=== PATIENT | female | born 1950 | race Caucasian/White ===

== ENCOUNTER 2016-08-15 20:09 | Inpatient (IN) | payer OTHER ==
[~2016-08-15] VITALS: Ht 167.6 cm; Wt 80.2 kg
[~2016-08-15 20:09] MED LIST: COLACE100 MG PO; ESCITALOPRAM OX10 MG PO; LEVOTHYROXINE100 MCG PO; LISINOPRIL/HYDR1 TA1 PO; ONDANSETRON ODT4 MG PO; PERCOCET1 TA1 PO; RANITIDINE HCL150 MG PO
--- NOTE | 2016-08-15 22:57 | DIAGNOSTIC IMAGING REPORT ---
PROCEDURE: CT ABD/PELVIS WITH CONTRAST INDICATION: Left flank pain. Follow-up left renal laceration. TECHNIQUE: 75 ml of Isovue 300 (one half-dose) were injected intravenously and axial images were obtained of the entire abdomen and pelvis with sagittal and coronal reformations. COMPARISON: Compared to CT thorax abdomen and pelvis (07/26/2016) and CT abdomen and pelvis studies (07/14/2016, 07/07/2009). FINDINGS: ABDOMEN: There is moderate left hydronephrosis with moderate blood clot in the left renal pelvis. This is associated with a 2.5 cm low density lesion/laceration in the lower pole left kidney. Right kidney and ureter are normal. Gallbladder, liver, spleen, pancreas, and aorta are normal. Moderate hiatal hernia. Bowel pattern is normal. Mild left basilar subsegmental atelectasis with healing fractures of the left lateral eighth ninth and tenth ribs. There are moderate degenerative changes of the lumbar spine. PELVIS: There is a large blood clot in the urinary bladder (7.0 cm). Uterus and adnexal structures are normal. No evidence of free fluid. IMPRESSION: 1. There is moderate left hydronephrosis secondary to a blood clot in the left renal pelvis. 2. There is a 2.5 cm lesion/laceration in the lower pole left kidney. 2. Associated large 7.0 cm blood clot in the urinary bladder. 3. Mild left basilar subsegmental atelectasis with 11 fractures of the left lateral eighth ninth and tenth ribs. 4. Moderate hiatal hernia. 5. Findings discussed with RICHARD Mendenhall. All CT scans at this facility use dose modulation, iterative reconstruction, and/or weight-based dosing when appropriate to reduce radiation dose to as low as reasonably achievable.
--- NOTE | 2016-08-15 23:05 | ED ORDER SUMMARY ---
..... Patient: DRAKE RON OrderSheet [facility] VisitID: [id number] [address] [place] [address] 65y, F Registration Date/Time: 08/15/2016 ORDER SHEET Weight: 73.4 kg (stated) Allergies: No Known Drug Allergy GENERAL ORDERS: UA-Culture if indicated Urgent (20:57 08/15/2016 ABlanchette PA-C) (Ack 21:03 [facility] ER Tech1) (Cancelled: Other; shayan blood in urine, see chart note23:12 JDeElena R.N.) CMP Urgent (21:06 08/15/2016 ABlanchette PA-C) (Ack 21:07 [facility] ER Tech1) (21:21 JDeElena R.N.) CBC w Diff Urgent (21:06 08/15/2016 ABlanchette PA-C) (Ack 21:07 [facility] Tech1) (21:21 JDeElena R.N.) CT Abd/Pel w Cont (No) (pending.) (history of renal laceration, now with worsening hematuria and worsening pain initial injury was from fall onto her side 07/14. see prior CT) Urgent (21:47 08/15/2016 ABlanchette PA-C) (Ack 21:50 [facility] ER Tech1) (22:34 JDeElena R.N.) MEDICATION ORDERS: IV FLUIDS: IV NS with Normal Saline 1 Liter: initial bolus none -, then 1000 mL/hr for X1 (NOW); Travis (21:04 08/15/2016 ABlanchette PA-C) (Ack 21:09 JDeElena R.N.) (21:22 JDeElena R.N.) Dilaudid IV 0.5 mg (HIGH ALERT MEDICATION, NOW) (21:05 08/15/2016 ABlanchette PA-C) (Ack 21:09 JDeElena R.N.) (21:22 JDeElena R.N.) Zofran IV 4 mg (NOW) (21:05 08/15/2016 ABlanchette PA-C) (Ack 21:09 JDeElena R.N.) (21:22 JDeElena R.N.) Dilaudid IV 0.5 mg (HIGH ALERT MEDICATION, NOW) (22:02 08/15/2016 [facility]-) (22:04 Rolly R.N.) Zofran IV 4 mg (NOW) (23:10 08/15/2016 Eusebia R.N. verbal order read back to [facility]) (23:11 BryceDeElena R.N.) Dilaudid IV 0.5 mg (HIGH ALERT MEDICATION, NOW) (23:10 08/15/2016 Eusebia R.N. verbal order read back to [facility]) (23:11 JasonElena R.N.) IV NS with Normal Saline 1 Liter: initial bolus none -, then 250 mL/hr for X1 (NOW) (23:10 08/15/2016 Eusebia R.N. verbal order read back to [facility]) (23:11 Eusebia R.N.) Dilaudid IV 0.5 mg (HIGH ALERT MEDICATION, NOW) (00:17 08/16/2016 [facility]) (0:20 Lise R.N.) ORDER SHEET NOTES: [Electronically signed by Galileo Lawler R.N. (00:08/16/2016)] [Electronically signed by Maeve Neri PA-C (01:20 08/16/2016)] [Electronically locked/signed by Galileo Lawler R.N. (00:08/16/2016)]
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
--- NOTE | 2016-08-15 23:05 | ED ORDER SUMMARY ---
..... Patient: DRAKE RON OrderSheet [facility] VisitID: [id number] [address] [place] [address] 65y, F Registration Date/Time: 08/15/2016 ORDER SHEET Weight: 73.4 kg (stated) Allergies: No Known Drug Allergy GENERAL ORDERS: UA-Culture if indicated Urgent (20:57 08/15/2016 ABlanchette PA-C) (Ack 21:03 [facility] ER Tech1) (Cancelled: Other; shayan blood in urine, see chart note23:12 JDeElena R.N.) CMP Urgent (21:06 08/15/2016 ABlanchette PA-C) (Ack 21:07 [facility] ER Tech1) (21:21 JDeElena R.N.) CBC w Diff Urgent (21:06 08/15/2016 ABlanchette PA-C) (Ack 21:07 [facility] ER Tech1) (21:21 JDeElena R.N.) CT Abd/Pel w Cont (No) (pending.) (history of renal laceration, now with worsening hematuria and worsening pain initial injury was from fall onto her side 07/14. see prior CT) Urgent (21:47 08/15/2016 ABlanchette PA-C) (Ack 21:50 [facility] ER Tech1) (22:34 JDeElena R.N.) MEDICATION ORDERS: IV FLUIDS: IV NS with Normal Saline 1 Liter: initial bolus none -, then 1000 mL/hr for X1 (NOW); Travis (21:04 08/15/2016 ABlanchette PA-C) (Ack 21:09 JDeElena R.N.) (21:22 JDeElena R.N.) Dilaudid IV 0.5 mg (HIGH ALERT MEDICATION, NOW) (21:05 08/15/2016 ABlanchette PA-C) (Ack 21:09 JDeElena R.N.) (21:22 JDeElena R.N.) Zofran IV 4 mg (NOW) (21:05 08/15/2016 ABlanchette PA-C) (Ack 21:09 JDeElena R.N.) (21:22 JDeElena R.N.) Dilaudid IV 0.5 mg (HIGH ALERT MEDICATION, NOW) (22:02 08/15/2016 [facility]-) (22:04 Rolly R.N.) Zofran IV 4 mg (NOW) (23:10 08/15/2016 Eusebia R.N. verbal order read back to [facility]) (23:11 BryceDeElena R.N.) Dilaudid IV 0.5 mg (HIGH ALERT MEDICATION, NOW) (23:10 08/15/2016 Eusebia R.N. verbal order read back to [facility]) (23:11 JasonElena R.N.) IV NS with Normal Saline 1 Liter: initial bolus none -, then 250 mL/hr for X1 (NOW) (23:10 08/15/2016 Eusebia R.N. verbal order read back to [facility]) (23:11 Eusebia R.N.) Dilaudid IV 0.5 mg (HIGH ALERT MEDICATION, NOW) (00:17 08/16/2016 [facility]) (0:20 Lise R.N.) ORDER SHEET NOTES: [Electronically signed by Galileo Lawler R.N. (00:08/16/2016)] [Electronically signed by Maeve Neri PA-C (01:20 08/16/2016)] [Electronically locked/signed by Galileo Lawler R.N. (00:08/16/2016)]
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
[2016-08-16] VITALS (9 sets, daily range): BP systolic 95–155; BP diastolic 55–99
--- NOTE | 2016-08-16 01:21 | ED MED RECONCILIATION SUMMARY ---
Patient: DRAKE RON Medication Reconciliation Report [facility] VisitID: [id number] [address] [place] [address] 65y, F Registration Date/Time: 08/15/2016 Weight: 73.4 kg Height/Length: 66 in. BMI: 26.1 ALLERGIES: No Known Drug Allergy The patient's Home Medications are listed below: THE FOLLOWING MEDICATIONS NEED TO BE RECONCILED: Citalopram Hydrobromide Oral Hydrochlorothiazide Oral Levothyroxine Sodium Oral Ranitidine HCl Oral The source(s) of the original Home Medication information: Not obtained. The following Medications were given to the patient in the Emergency Department: IV NS IV Fluids bolus 1000 mL over 1 hour(s), then 1000 mL/hr, administered: 08/15/2016 9:22:00 PM Dilaudid [IVP] IVP 0.5 mg, administered: 08/15/2016 9:22:00 PM Zofran [IVP] IVP 4 mg, administered: 08/15/2016 9:22:00 PM Dilaudid [IVP] IVP 0.5 mg, administered: 08/15/2016 10:04:00 PM Zofran [IVP] IVP 4 mg, administered: 08/15/2016 11:11:00 PM Dilaudid [IVP] IVP 0.5 mg, administered: 08/15/2016 11:11:00 PM IV NS IV Fluids bolus 0, then 250 mL/hr, administered: 08/15/2016 11:11:00 PM Dilaudid [IVP] IVP 0.5 mg, administered: 08/16/2016 12:18:00 AM The following Medications were prescribed to the patient: None.
--- NOTE | 2016-08-16 01:21 | ED MAR SUMMARY ---
..... Medication Administration Record [facility] [address] [place] [address] Patient: DRAKE RON Visit ID: [id number] 65y, F Weight: 73.4 kg Height/Length: 66 in BMI: 26.1 ALLERGIES: No Known Drug Allergy Start 21:08/15/2016 Galileo Lawler R.N., Stop 23:08/15/2016 Galileo Lawler R.N. Medication Administered: IV NS (SALINE), Dose: IV Fluids, Rate: 1000 mL/hr, Bolus: 1000 mL over 1 hour(s), Dispensed: 1000 mL bag, Site: #1 left AC. Medication Ordered: IV NS with Normal Saline 1 Liter: initial bolus none -, then 1000 mL/hr for X1 (NOW); Travis. Given 08/15/2016 Galileo Lawler R.N. Medication Administered: DILAUDID [IVP] (HYDROMORPHONE HCL PF), Dose: 0.5 mg IVP over 2 minute(s), Site: #1 left AC. Medication Ordered: Dilaudid IV 0.5 mg (HIGH ALERT MEDICATION, NOW). Given 08/15/2016 Galileo Lawler R.N. Medication Administered: ZOFRAN [IVP] (ONDANSETRON HCL), Dose: 4 mg IVP over 2 minute(s), Site: #1 left AC. Medication Ordered: Zofran IV 4 mg (NOW). Given 08/15/2016 Guadalupe Spencer R.N. Medication Administered: DILAUDID [IVP] (HYDROMORPHONE HCL PF), Dose: 0.5 mg IVP over 1 minute(s), Site: #1 left AC. Medication Ordered: Dilaudid IV 0.5 mg (HIGH ALERT MEDICATION, NOW). Given 08/15/2016 Galileo Lawler R.N. Medication Administered: ZOFRAN [IVP] (ONDANSETRON HCL), Dose: 4 mg IVP over 2 minute(s), Site: #1 left AC. Medication Ordered: Zofran IV 4 mg (NOW). Given :11 08/15/2016 Galileo Lawler, RJasonNJason Medication Administered: DILAUDID [IVP] (HYDROMORPHONE HCL PF), Dose: 0.5 mg IVP over 2 minute(s), Site: #1 left AC. Medication Ordered: Dilaudid IV 0.5 mg (HIGH ALERT MEDICATION, NOW). Start 23:11 08/15/2016 Galileo Lawler R.N., Continued Upon Admission 00:02 08/16/2016 Galileo Lawler R.N. Medication Administered: IV NS (SALINE), Dose: IV Fluids over 4 hour(s), Rate: 250 mL/hr, Dispensed: 1000 mL bag, Site: #1 left AC. Medication Ordered: IV NS with Normal Saline 1 Liter: initial bolus none -, then 250 mL/hr for X1 (NOW). Given 00:18 08/16/2016 Joey Wilson, R.N. Medication Administered: DILAUDID [IVP] (HYDROMORPHONE HCL PF), Dose: 0.5 mg IVP over 1 minute(s), Site: #1 left AC. Medication Ordered: Dilaudid IV 0.5 mg (HIGH ALERT MEDICATION, NOW).
--- NOTE | 2016-08-16 01:21 | ED MAR SUMMARY ---
..... Medication Administration Record [facility] [address] [place] [address] Patient: DRAKE RON Visit ID: [id number] 65y, F Weight: 73.4 kg Height/Length: 66 in BMI: 26.1 ALLERGIES: No Known Drug Allergy Start 21:08/15/2016 Galileo Lawler R.N., Stop 23:08/15/2016 Galileo Lawler R.N. Medication Administered: IV NS (SALINE), Dose: IV Fluids, Rate: 1000 mL/hr, Bolus: 1000 mL over 1 hour(s), Dispensed: 1000 mL bag, Site: #1 left AC. Medication Ordered: IV NS with Normal Saline 1 Liter: initial bolus none -, then 1000 mL/hr for X1 (NOW); Travis. Given 08/15/2016 Galileo Lawler R.N. Medication Administered: DILAUDID [IVP] (HYDROMORPHONE HCL PF), Dose: 0.5 mg IVP over 2 minute(s), Site: #1 left AC. Medication Ordered: Dilaudid IV 0.5 mg (HIGH ALERT MEDICATION, NOW). Given 08/15/2016 Galileo Lawler R.N. Medication Administered: ZOFRAN [IVP] (ONDANSETRON HCL), Dose: 4 mg IVP over 2 minute(s), Site: #1 left AC. Medication Ordered: Zofran IV 4 mg (NOW). Given 08/15/2016 Guadalupe Spencer R.N. Medication Administered: DILAUDID [IVP] (HYDROMORPHONE HCL PF), Dose: 0.5 mg IVP over 1 minute(s), Site: #1 left AC. Medication Ordered: Dilaudid IV 0.5 mg (HIGH ALERT MEDICATION, NOW). Given 08/15/2016 Galileo Lawler R.N. Medication Administered: ZOFRAN [IVP] (ONDANSETRON HCL), Dose: 4 mg IVP over 2 minute(s), Site: #1 left AC. Medication Ordered: Zofran IV 4 mg (NOW). Given :11 08/15/2016 Galileo Lawler, RJasonNJason Medication Administered: DILAUDID [IVP] (HYDROMORPHONE HCL PF), Dose: 0.5 mg IVP over 2 minute(s), Site: #1 left AC. Medication Ordered: Dilaudid IV 0.5 mg (HIGH ALERT MEDICATION, NOW). Start 23:11 08/15/2016 Galileo Lawler R.N., Continued Upon Admission 00:02 08/16/2016 Galileo Lawler R.N. Medication Administered: IV NS (SALINE), Dose: IV Fluids over 4 hour(s), Rate: 250 mL/hr, Dispensed: 1000 mL bag, Site: #1 left AC. Medication Ordered: IV NS with Normal Saline 1 Liter: initial bolus none -, then 250 mL/hr for X1 (NOW). Given 00:18 08/16/2016 Joey Wilson, R.N. Medication Administered: DILAUDID [IVP] (HYDROMORPHONE HCL PF), Dose: 0.5 mg IVP over 1 minute(s), Site: #1 left AC. Medication Ordered: Dilaudid IV 0.5 mg (HIGH ALERT MEDICATION, NOW).
--- NOTE | 2016-08-16 01:21 | ED MED RECONCILIATION SUMMARY ---
Patient: DRAKE RON Medication Reconciliation Report [facility] VisitID: [id number] [address] [place] [address] 65y, F Registration Date/Time: 08/15/2016 Weight: 73.4 kg Height/Length: 66 in. BMI: 26.1 ALLERGIES: No Known Drug Allergy The patient's Home Medications are listed below: THE FOLLOWING MEDICATIONS NEED TO BE RECONCILED: Citalopram Hydrobromide Oral Hydrochlorothiazide Oral Levothyroxine Sodium Oral Ranitidine HCl Oral The source(s) of the original Home Medication information: Not obtained. The following Medications were given to the patient in the Emergency Department: IV NS IV Fluids bolus 1000 mL over 1 hour(s), then 1000 mL/hr, administered: 08/15/2016 9:22:00 PM Dilaudid [IVP] IVP 0.5 mg, administered: 08/15/2016 9:22:00 PM Zofran [IVP] IVP 4 mg, administered: 08/15/2016 9:22:00 PM Dilaudid [IVP] IVP 0.5 mg, administered: 08/15/2016 10:04:00 PM Zofran [IVP] IVP 4 mg, administered: 08/15/2016 11:11:00 PM Dilaudid [IVP] IVP 0.5 mg, administered: 08/15/2016 11:11:00 PM IV NS IV Fluids bolus 0, then 250 mL/hr, administered: 08/15/2016 11:11:00 PM Dilaudid [IVP] IVP 0.5 mg, administered: 08/16/2016 12:18:00 AM The following Medications were prescribed to the patient: None.
--- NOTE | 2016-08-16 01:21 | ED DISCHARGE INSTRUCTIONS ---
Patient: DRAKE RON General Instructions [facility] VisitID: [id number] [address] [place] [address] 65y, F Registration Date/Time: 08/15/2016 renal laceration with renal pelvis hematoma now with obstruction and clot within the bladder. Admitted. INSTRUCTIONS Understanding of the discharge instructions verbalized by patient. (Electronically signed by Maeve Neri PA-C 08/16/2016 1:20)
--- NOTE | 2016-08-16 01:21 | ED DISCHARGE INSTRUCTIONS ---
Patient: DRAKE RON General Instructions [facility] VisitID: [id number] [address] [place] [address] 65y, F Registration Date/Time: 08/15/2016 renal laceration with renal pelvis hematoma now with obstruction and clot within the bladder. Admitted. INSTRUCTIONS Understanding of the discharge instructions verbalized by patient. (Electronically signed by Maeve Neri PA-C 08/16/2016 1:20)
--- NOTE | 2016-08-16 09:17 | CONSULTATION REPORT ---
DATE OF CONSULTATION: 08/16/2016 CHIEF COMPLAINT: 1. Left flank pain 2. Hematuria HISTORY OF PRESENT ILLNESS: The patient is a 65-year-old woman who presented to the emergency department with acute onset of pain in the left flank and hematuria. Today, she turned her body suddenly and developed a sudden pain. This patient was admitted to the hospital on 07/14/2016, about 1 month ago, after falling while walking her dog. She struck her left side and sustained 3 lower rib fractures and a renal laceration. A CT showed a 2.5 cm laceration with mild perinephric hematoma and filling defect in the left renal pelvis. She had normal dye excretion within the left ureter. At the time, her hematocrit was 41. In this occasion, she was admitted to the hospital with recurrence of similar symptoms following this twisting movement. She has since been found to have a clot in her bladder. Initially, she was urinating freely last night, but this morning notes she is having trouble passing urine, and she has a 350-400 mL residual in her bladder. MEDICAL/SURGICAL HISTORY: Medical history of cyclic vomiting syndrome, hypertension, hypothyroidism, and anxiety. Past surgeries includes tonsillectomy and adenoidectomy, bilateral foot surgery and EGD. MEDICATIONS: 1. Synthroid 0.1 mg daily. 2. Ondansetron 4 mg as needed. 3. Zantac 150 b.i.d. 4. Escitalopram 10 mg daily. 5. Lisinopril/hydrochlorothiazide 10/12.5 every day. The patient denies use of NSAIDs or aspirin, but did take some Tylenol yesterday. ALLERGIES: 1. NONE TO MEDICATIONS. SOCIAL HISTORY: The patient is . She has 2 sons. She does not smoke cigarettes, rarely takes alcohol. FAMILY HISTORY: Mother at 79. Father at 81. She has 2 brothers; 1 in an MVA, the other from lung cancer, one sister of cancer, unknown primary. REVIEW OF SYSTEMS: A multipoint review of systems was obtained on admission on 07/14/2016. This was reviewed with the patient. The patient reports no new additional problems. She is G2, P3, AB1, with menarche at age 12. LNMP at age 56. She does her preventive medicine with [facility]; had a mammogram and a Pap smear within a year or so. Additional more than 12-point review of systems was obtained by questionnaire on 08/15/2016 and is pertinent only for urinary symptoms and nausea. PHYSICAL EXAMINATION: GENERAL: The patient is alert and cooperative. HEENT: Her ears and nose are without gross external lesions. Eyes are equal. She is anicteric. NECK: Without palpable masses or thyromegaly. CHEST: Clear, without wheeze or rales. HEART: Regular, without murmur or gallop. ABDOMEN: Reveals tenderness in the flank and with palpation. She has no evidence of flank ecchymosis or periumbilical ecchymosis. EXTREMITIES: Symmetric. She appears to move without restriction. LAB/IMAGING: Her CBC in the emergency room demonstrated hemoglobin and hematocrit of 12.4 and 37.9, with a repeat this morning of 11.6 and 35.5, white blood count was 15.7 and has gone down to 13.4, her platelet count is 330,000. Her chemistry demonstrated normal electrolytes, mildly elevated BUN at 26, normal creatinine of 1.2, bilirubin is normal. Liver enzymes all normal. Protein and albumin are all normal. CT scan was repeated and compared to previous scans. This current CT demonstrates moderate left hydronephrosis secondary to a blood clot in the left renal pelvis, a 2.5 cm lesion in the lower pole of the left kidney, and a 7 cm blood clot in the urinary bladder. There is left basilar atelectasis with fractures of the left eighth, ninth, tenth, and eleventh ribs. There is a moderate hiatal hernia noted. IMPRESSION: 1. Recurrent hematuria from left renal laceration PLAN: I recommended placement of an irrigating catheter to help to clear out her bladder and get urinary flow going. She will be placed at bed rest and observed for evidence of ongoing bleeding. I will try to obtain telephonic consultation with a urologist to determine if transfer or any further intervention is needed at this time.
--- NOTE | 2016-08-16 11:24 | Progress Note ---
Assessment and Plan Problem List 1. RENAL LACERATION Plan I presented Ms. Hdz to Dr. Ortega who is the urologist aws consultant at [facility]. He agreed with the current plan of conservative management with catheter drainage for clot retention and observation for the renal injury. He recommended urologic follow up to rule out a renal tumor after she is discharged. He also concurred with consideration of angiography if bleeding is ongoing, but reported that a recurrent bleed at this point is not that unusual. Dr. Ortega's office number is [phone].
--- NOTE | 2016-08-16 11:24 | Progress Note ---
Assessment and Plan Problem List 1. RENAL LACERATION Plan I presented Ms. Hdz to Dr. Ortega who is the urologist driver education road instructor at [facility]. He agreed with the current plan of conservative management with catheter drainage for clot retention and observation for the renal injury. He recommended urologic follow up to rule out a renal tumor after she is discharged. He also concurred with consideration of angiography if bleeding is ongoing, but reported that a recurrent bleed at this point is not that unusual. Dr. Ortega's office number is [phone].
[2016-08-17 00:53] VITALS: BP 129/82
[2016-08-17 03:04] VITALS: BP 112/74
[2016-08-17 06:17] VITALS: BP 115/76
[2016-08-17 10:53] VITALS: BP 124/80
--- NOTE | 2016-08-17 12:25 | DIAGNOSTIC IMAGING REPORT ---
PROCEDURE: US PELVIC LIMITED INDICATION: INGUINAL PAIN, R HIP PAIN, RULE OUT HERNIA TECHNIQUE: Multiple longitudinal and transverse sonograms were obtained through the pelvis and bladder COMPARISON: None FINDINGS: Difficult scan. Son catheter was seen in the bladder. No large clots were seen. IMPRESSION: 1. No large clots in the bladder.
[2016-08-17 15:50] VITALS: BP 143/96
[2016-08-17 19:05] VITALS: BP 143/88
[2016-08-18] VITALS (7 sets, daily range): BP systolic 122–159; BP diastolic 75–96
[2016-08-19 02:45] VITALS: BP 129/74
[2016-08-19 06:35] VITALS: BP 157/80
[2016-08-19] MEDS ORDERED: PERCOCET1 TA1 PO (07:56)
--- NOTE | 2016-08-19 07:57 | Provider's Discharge Care Plan ---
Problem, Goal, Plan Problem List 1. Intraabdominal hemorrhage 2. RENAL LACERATION
--- NOTE | 2016-08-19 07:57 | Provider's Discharge Care Plan ---
Problem, Goal, Plan Problem List 1. Intraabdominal hemorrhage 2. RENAL LACERATION
--- NOTE | 2016-08-30 22:11 | DISCHARGE SUMMARY ---
ADMIT DATE: 08/16/2016 DISCHARGE DATE: 08/19/2016 DISCHARGE DIAGNOSES: 1. Renal laceration. 2. Urinary clot retention. BRIEF HISTORY: The patient is a 65-year-old woman who presented to the emergency department with acute onset of left flank pain and hematuria. This patient sustained a fall on 07/14/2016 while she was walking her dog, where she developed a left renal laceration and 3 lower rib fractures. This all seemed to heal up well without any problem, but on this occasion, the patient did have twisting movement and her symptoms promptly recurred more than a month out from the original injury. She was also found to have a clot in her bladder and initially having was urinating freely, but then developed evidence of clot retention. HOSPITAL COURSE: She was admitted to the hospital where a large bore irrigating Son catheter was placed and the blood clot irrigated out of her bladder. She was kept at bed rest and observed for signs of ongoing bleeding, which did not occur. Her diet was advanced and her bleeding stopped. I consulted with Dr. Ortega of urology on the telephone and he concurred with the method of management, but recommended that she be followed up with urology due to the possibility of intrinsic kidney disease being associated with this recurrent episode of bleeding. DISCHARGE INSTRUCTIONS/MEDICATIONS: Follow up with urology after discharge.
== END 2016-08-19 09:45 | disposition home or self-care (01) | DRG 700 ==
LOC: ED SRH 20:09 → ACUTE3 SRH 23:08 → TRANS SRH 23:08 → ACUTE3 SRH 08-16 00:20 → ACUTE2 SRH 08-18 17:14
PROVIDERS: ADMIT Surgery
DX: S37.052A Moderate laceration of left kidney, initial encounter (principal); W01.198A Fall on same level from slipping, tripping and stumbling with subsequent striking against other object, initial encounter; R31.0 Gross hematuria; N13.9 Obstructive and reflux uropathy, unspecified
CPT/HCPCS: 29230; 29259; 29264; 80172; 90047; 90074; 90100; 94060; 95059

== ENCOUNTER 2016-09-02 15:21 | Observation (INO) | payer OTHER ==
--- NOTE | 2016-09-02 18:27 | ED ORDER SUMMARY ---
..... Patient: DRAKE RON OrderSheet [facility] VisitID: [id number] [place] [address] 65y, F Registration Date/Time: 09/02/2016 ORDER SHEET Weight: 71.6 kg (stated) Allergies: Vicodin GENERAL ORDERS: CBC w Diff Urgent (16:09/02/2016 Kenny MERCADO) (Ack 16:02 TBergley) (16:32 TBergley) UA-Culture if indicated Urgent (16:09/02/2016 Kenny MERCADO) (Ack 16:02 TBergley) (16:30 TBergley) BMP Urgent (16:09/02/2016 Kenny MERCADO) (Ack 16:05 TBergley) (16:32 TBergley) Type & Cross (blood loss anemia) (transfusion) Urgent (18:09/02/2016 Kenny MERCADO) (Ack 18:43 TBergley) (19:51 TBergley) - (Start transfusion 3 units PRBC as soon as blood is available.) (18:09/02/2016 Kenny MERCADO) (Ack 18:43 TBergley) (19:51 TBergley) MEDICATION ORDERS: IV FLUIDS: IV Saline Lock (16:09/02/2016 Kenny MERCADO) (16:36 Fabiola R.N.) ORDER SHEET NOTES: [Electronically signed by Toribio Prater R.N. (21:09/02/2016)] [Electronically signed by Herbert Carmen MD (08:23 09/04/2016)] [Electronically locked/signed by Toribio Prater R.N. (:09/02/2016)]
--- NOTE | 2016-09-02 18:27 | ED CLINICAL REPORT ---
Clinical Report - Physicians/Mid Levels [facility] [address] [place] [address] 09/02/2016 15:20 Patient: DRAKE RON Time Seen: 08:14 Sep 04 2016. Arrived- By private vehicle. Historian- patient. CPT: ER phys charges level 5 (#241124). HISTORY OF PRESENT ILLNESS Chief Complaint: Anemia, need transfusion. ( Patient was seen in urology clinic today and sent to the ER for transfusion. Patient has underlying ruptured kidney on the left due to trauma and has slow bleeding through the urinary tract. She has been urinating blood for 6 weeks now. She had a hematocrit at the office of 24. 7 days ago she had a hematocrit that was 34.). This started several days and is still present. At its maximum, severity described as moderate. When seen in the E.D., severity described as moderate. Modifying factors. Not worsened by anything. Not relieved by anything. The patient has had fatigue and weakness. Similar symptoms previously: None. Recent medical care: The patient was seen recently at this facility and another facility in the emergency department and office. REVIEW OF SYSTEMS No fever, sore throat or throat, sinus drainage or nasal congestion. No cough, difficulty breathing, abdominal pain, nausea or vomiting. No diarrhea, black stools or stools or bloody stools or stools. No chills, difficulty with urination or urination or abnormal bleeding. No skin rash or rash, back pain, calf pain or headache. No blackouts, double vision, epistaxis, urinary frequency or easy bruising. The patient has had moderate, sharp, stabbing left-sided chest pain (due to rib fractures.). No difficulty with ambulation. The patient has had hematuria. All systems otherwise negative, except as recorded above. PAST HISTORY See nurses notes. ( Patient states broke some ribs and had lacerated left kidney 12/ post fall Rib Fracture. Renal Injury. Thyroid Disease. Hypertension. Gastroesophageal Reflux Disease. Cyclical vomiting syndrome. ADDITIONAL SURGERIES: Adenoidectomy. Bilateral feet. Tonsillectomy. Wrist bilat. Medications: Zofran Oral. Percocet Oral. Citalopram Hydrobromide Oral. Hydrochlorothiazide Oral. Levothyroxine Sodium Oral. Ranitidine HCl Oral. Allergies: Vicodin. SOCIAL HISTORY Never smoker. No alcohol use or drug use. ADDITIONAL NOTES The nursing notes have been reviewed. PHYSICAL EXAM Vital Signs: 09/02/2016 15:28 BP: 142/64. HR: 91. RR: 18. O2 saturation: 100%. Temp: 98.5 F. Appearance: Alert. Eyes: Pale conjunctivae. ENT: Nose normal. Pharynx normal. Neck: Normal inspection. CVS: Normal heart rate and rhythm. Heart sounds normal. Pulses normal. Respiratory: No respiratory distress. Breath sounds normal. Chest nontender. Abdomen: Soft and nontender. Back: Normal inspection. Skin: Skin warm. No rash. Pallor. Extremities: Extremities exhibit normal ROM. Neuro: Oriented X 3. No motor deficit. No sensory deficit. LABS, X-RAYS, AND EKG Laboratory Tests: CBC wo Diff: (MINDY: 09/03/2016 11:50) ( [facility] 11[facility]58[facility] Final results Test Result Flag Units (Reference) WHITE BLOOD COUNT NO REFLEX 9.4 K/uL (4.5-11.5) RED BLOOD COUNT 3.84 L M/uL (4.00-5.20) HEMOGLOBIN 11.4 L gm/dL (12.0-16.0) HEMATOCRIT 33.7 L % (36.0-46.0) MEAN CELL VOLUME 88 fL (80-100) MEAN CORPUSCULAR HGB 30 pg (26-34) MEAN CORPUSCULAR HGB CONC 34 g/dL (31-37) RED CELL DISTRIBUTION WIDTH 13.8 % (11.6-14.8) PLATELET COUNT 374 K/uL (150-400) CBC w Diff: (MINDY: 09/03/2016 05:00) ( [facility] 09/03[facility] 05:25) Final results Test Result Flag Units (Reference) WHITE BLOOD COUNT 9.9 K/uL (4.5-11.5) RED BLOOD COUNT 3.61 L M/uL (4.00-5.20) HEMOGLOBIN 10.8 L gm/dL (12.0-16.0) HEMATOCRIT 31.4 L % (36.0-46.0) MEAN CELL VOLUME 87 fL (80-100) MEAN CORPUSCULAR HGB 30 pg (26-34) MEAN CORPUSCULAR HGB CONC 34 g/dL (31-37) RED CELL DISTRIBUTION WIDTH 13.8 % (11.6-14.8) PLATELET COUNT 352 K/uL (150-400) NEUTROPHIL % 64.2 % (50-75) LYMPH % 24.5 L % (25-40) MONO % 5.5 % (3-14) EOSINOPHIL % 5.0 H % (0-4) BASOPHIL % 0.8 % (0-2) UA-Culture if indicated: (MINDY: 09/02/2016 16:17) ( MsgRcvd 09/02/2016 16:53) Final results Test Result Flag Units (Reference) URINE COLOR YELLOW URINE APPEARANCE CLEAR URINE GLUCOSE NEGATIVE (NEGATIVE) URINE BILIRUBIN 3+ (NEGATIVE) URINE KETONE 1+ (NEGATIVE) URINE SPECIFIC GRAVITY 1.015 (1.010-1.030) URINE PH 7.5 (5.0-8.0) URINE PROTEIN 3+ (NEGATIVE) URINE UROBILINOGEN 4.0 EU/dL (0.2-1.0) The urobilinogen reagent area may react with interferingsubstances known to react with Ingrid's reagent such asp-aminosalicylic acid and sulfonamides. Atypical colorreactions may be obtained in the presence of highconcentrations of p-aminobenzoic acid. The absence ofurobilinogen cannot be determined with this test. URINE NITRITE POSITIVE (NEGATIVE) URINE BLOOD 3+ (NEGATIVE) URINE LEUK ESTERASE POSITIVE (NEGATIVE) URINE RBC >100 rbc/hpf (0-1) URINE WBC 3-5 wbc/hpf (0-1) URINE EPITHELIAL CELLS 0-1 EPI/hpf (0-5) URINE BACTERIA MODERATE (2+ TO 3+) (NONE SEEN) URINE COMMENT CULTURE INDICATED URINE CULTURES ARE SET-UP BASED ON THE FOLLOWING CRITERIA:POSITIVE NITRITEPOSITIVE LEUKOCYTE ESTERASEGREATER THAN 10 WHITE BLOOD CELLSMODERATE (2+) OR GREATER BACTERIA CBC w Diff: (MINDY: 09/02/2016 16:30) ( MsgRcvd 09/02/2016 17:03) Final results Test Result Flag Units (Reference) WHITE BLOOD COUNT 11.2 K/uL (4.5-11.5) RED BLOOD COUNT 2.79 L M/uL (4.00-5.20) HEMOGLOBIN 8.1 L gm/dL (12.0-16.0) HEMATOCRIT 24.4 L % (36.0-46.0) MEAN CELL VOLUME 88 fL (80-100) MEAN CORPUSCULAR HGB 29 pg (26-34) MEAN CORPUSCULAR HGB CONC 33 g/dL (31-37) RED CELL DISTRIBUTION WIDTH 14.2 % (11.6-14.8) PLATELET COUNT 408 H K/uL (150-400) NEUTROPHIL % 68.3 % (50-75) LYMPH % 20.6 L % (25-40) MONO % 6.3 % (3-14) EOSINOPHIL % 4.2 H % (0-4) BASOPHIL % 0.6 % (0-2) BMP: (MINDY: 09/02/2016 16:30) ( MsgRcvd 09/02/2016 16:56) Final results Test Result Flag Units (Reference) GLUCOSE 100 mg/dL (70-110) BUN 20 H mg/dL (7-18) CREATININE 1.1 mg/dL (0.6-1.3) Estimated GFR 53.15 mL/min Estimated GFR- >60 mL/min Note: Persistent reduction over 3 months in eGFR<60 mL/min/1.73 m2 defines CKD. Patients with eGFR values>=60 mL/min/1.73 m2 may also have CKD if evidence ofpersistent proteinuria. Additional information may be foundat www.kidney.org. SODIUM 135 L mmol/L (136-145) POTASSIUM 3.4 L mmol/L (3.5-5.1) CHLORIDE 98 mmol/L (98-107) CARBON DIOXIDE 26 mmol/L (21-32) CALCIUM 8.9 mg/dL (8.5-10.1) Culture, Urine: (MINDY: 09/02/2016 16:17) ( [facility] 09/03/2016 15:03) Final results Test Result Flag Units (Reference) CULTURE, URINE DATE: 09/03/16 PRELIM REPORT: FINAL REPORT -- GRCSTREP QUANTITATIVE URINE GROWTH: GREATER THAN 100,000 CFU/mL ID AND SENS TO FOLLOW: NO FURTHER WORKUP Type & Cross: (MINDY: 09/02/2016 16:30) ( MsgRcvd 09/03/2016 03:56) IP Test Result Flag Units (Reference) PATIENT BLOOD TYPE O Positive Above is a corrected result. Previously reported on ( MsgRcvd 09/02/2016 19:19) as: PATIENT BLOOD TYPE O Positive ANTIBODY SCREEN NEGATIVE Above is a corrected result. Previously reported on ( MsgRcvd 09/02/2016 19:19) as: ANTIBODY SCREEN NEGATIVE LEUKOREDUCED PACKED CELLS [id number] OP PC TRANSFUSED 09/03/16 0102 [id number] OP PC ISSUED 09/02/16 1934 [id number] OP PC TRANSFUSED 09/02/164 . PROGRESS AND PROCEDURES Course of Care: Discussed with Dr. Allison urologist on-call for Dr. Portillo. [phone]. [facility]. Discussed the natural progression of this disease and expected outcome. Basically the patient is to be treated conservatively and transfuse as needed and hopefully this bleeding will regress and stop itself. In specific there is no need to recent CAT scan the patient unless she has symptoms of femoral neuropathy from retroperitoneal spread and femoral canal compression. Her treatment for now should just consist of a transfusion as needed and monitoring of hematocrits. Discussed case with on-call health care provider, (Hernan). Reviewed test results. Agreed upon treatment plan and decision to admit. Health care provider will see patient in ED. Patient/family counseled. Old medical records ordered. Disposition orders written. Disposition: Admitted to Acute Care. CLINICAL IMPRESSION Progressive anemia due to urinary blood loss from left sided renal trauma. Admission for blood transfusion. (Electronically signed by Herbert Carmen MD 09/04/2016 8:23)
--- NOTE | 2016-09-02 18:27 | ED NURSING NOTES ---
Clinical Report - Nurses [facility] [address] [place] [address] 09/02/2016 15:20 Patient: DRAKE RON TRIAGE Triage time 15:Sep 02 2016. Acuity: LEVEL 3. Chief Complaint: (weak, dysuria). 15:28 09/02/16. SEPSIS SCREEN: Sepsis Screen: negative. Negative (no infection suspected/documented). PETER COMA SCORE: [place] Coma Scale: 15- eyes open spontaneously (4); best verbal response- oriented x 4 (5); best motor response- obeys commands (6). --15:34 Tessy Dow R.N. 15:28 09/02/16. BP: 142/64. HR: 91. RR: 18. O2 saturation: 100%. Temp: 98.5 F. Pain level now 4/10. --15:34 Tessy Dow R.N. 15:45 09/02/16. --15:45 Tessy Dow R.N. Weight: 71.6 kg stated. Height/Length: 66 inches Per Patient. BMI: 25.5. --15:27 Tessy Dow R.N. Medications Citalopram Hydrobromide Oral. Hydrochlorothiazide Oral. Levothyroxine Sodium Oral. Ranitidine HCl Oral. --15:32 Tessy Dow R.N. Percocet Oral. --15:32 Tessy Dow R.N. Zofran Oral. --15:32 Tessy Dow R.N. Medication/allergy information source: the patient. --15:34 Tessy Dow R.N. Allergies Vicodin. --15:30 Tessy Dow R.N. History Arrived by private vehicle. Historian: patient. Accompanied by family. This started today. ( Patient states broke some ribs and had lacerated left kidney 12/ post fall. Was at clinic today for hemuria). She has had weakness. No fever, cough, difficulty breathing or skin rash. Denies muscle aches. Treatment [employer] HELPER OFFSET: None. PAST MEDICAL HX: Immunizations: seasonal influenza. The patient is post-menopausal. SOCIAL HX: Never smoker. No alcohol use or drug use. No infectious disease exposure. ABUSE ASSESSMENT: No report of abuse. SELF HARM ASSESSMENT: A self harm assessment was performed. The patient answered "no" to the question "Have you recently felt down, depressed, or hopeless?", "Have you noticed less interest or pleasure in doing things?", "Do you have thoughts of harming or killing yourself?", "Are you here because you tried to hurt yourself?", "Have you ever tried to hurt yourself before today?", "Have you recently had thoughts about harming or killing others?" and "Do you have any dangerous items in your possession?". FALL RISK ASSESSMENT: Fall risk assessment completed. No fall risk identified. NUTRITIONAL RISK ASSESSMENT: The nutritional risk assessment revealed no deficiencies. FUNCTIONAL ASSESSMENT: Functional assessment: no impairments noted. LEARNING NEEDS ASSESSMENT: The learning needs assessment revealed no barriers. SKIN INTEGRITY ASSESSMENT: Skin integrity risk assessment completed. No skin integrity risk identified. --15:34 Tessy Dow R.N. ( Patient has had drop in Hematocrit from 33 to 24 and was sent for eval and transfusion). --15:45 Tessy Dow R.N. PROBLEMS: Rib Fracture. Renal Injury. Thyroid Disease. Hypertension. Gastroesophageal Reflux Disease. Cyclical vomiting syndrome. --15:32 Tessy Dow R.N. ADDITIONAL SURGERIES: Adenoidectomy. Bilateral feet. Tonsillectomy. Wrist bilat. --15:32 Tessy Dow R.N. Interventions ID band on patient. --15:34 Tessy Dow R.N. PHYSICAL ASSESSMENT 15:30 09/02/16. Patient gowned. GENERAL / NEURO / PSYCH: Alert. Oriented X 4. Appears in no acute distress. HEENT: Pupils equal, round and reactive to light. No facial asymmetry noted. Mucous membranes are pink. RESPIRATORY: Breath sounds within normal limits. CVS: Pulses within normal limits. GI / : Abdomen nontender. SKIN: Skin intact. Skin is warm and dry. Normal skin turgor. --15:45 Tessy Dow R.N. NURSING PROGRESS NOTES 15:30 09/02/16. The initial plan of care for this patient has been created This plan of care was discussed with the patient. Patient gowned. Reassurance given. Two patient identifiers checked. Call light placed in reach. Side rails up x 1. Bed placed in lowest position. Brakes of bed on. Patient ready for evaluation. --15:42 Tessy Dow R.N. 16:30 09/02/2016 Site #1 started via IV in the right antecubital space with an 18g angiocath, with aseptic technique and good blood return; one attempt. Blood drawn: rainbow set. Labeled in the presence of the patient and sent to the lab. Saline lock flushed with 10 mL saline. --16:33 Tessy Dow R.N. 16:30 09/02/16. Patient ID band checked for patient name and birthdate: patient confirmed. Instructions provided to collect clean catch urine and patient verbalized understanding. Clean catch urine collected with return of red-colored bloody urine; sample sent to lab for urinalysis. Specimen labeled in the presence of the patient. --16:35 Tessy Dow R.N. 17:31 09/02/16. Overall patient status is the same- she states feels the same. RESPIRATORY: No respiratory distress. Breath sounds normal. SKIN: Skin is warm and dry. Patient waiting for disposition. --17:31 Tessy Dow R.N. 17:30 09/02/16. BP: 103/60. HR: 70. RR: 16. O2 saturation: 100%. Pain level now: 11/15. --17:31 Tessy Dow R.N. 18:40 09/02/16. The patient is calm and resting quietly. ( Waiting for PRBC to be ready. Lab to call). --18:40 Tessy Dow R.NJason 18:40 09/02/16. BP: 110/73. HR: 76. RR: 18. O2 saturation: 100%. Pain level now 0/10. --18:40 Tessy Dow R.NJason 19:45 09/02/16. ( TRANSFUSION STARTED VIA PUMP 19:45 AT 150 ML/HR). --19:50 Tessy Dow R.NJason 19:45 09/02/16. BLOOD PRODUCT STARTED: consent signed, ID band checked and blood product verified to order and patient's blood band by 2 staff members. #1 unit PRBC via IV pump (150 mL/hr). See transfusion record. --19:53 Tessy Dow R.NJason 19:44 09/02/16. BP: 112/63. HR: 95. RR: 18. O2 saturation: 100%. Temp: 98.2 F. Pain level now: 0/10. --19:53 Tessy Dow R.NJason 20:15 09/02/16. The patient has had no adverse reaction. Overall patient status is the same- she states feels the same. RESPIRATORY: Denies difficulty breathing. No respiratory distress. Breath sounds normal. CVS: Denies chest pain. GI / : Denies nausea. SKIN: Skin is warm and dry. Skin color within normal limits. --20:17 Tessy Dow R.NJason 20:15 09/02/16. BP: 95/60. HR: 85. RR: 16. O2 saturation: 100%. Temp: 98.1 F. Pain level now: 0/10. --20:17 Tessy Dow R.NJason 20:32 09/02/16. The patient reports no complaints and she has had no adverse reaction. RESPIRATORY: No respiratory distress. --20:32 Tessy Dow R.NJason 20:30 09/02/16. BP: 115/63. HR: 80. RR: 18. O2 saturation: 99%. Temp: 98 F. Pain level now: 0/10. --20:32 Tessy Dow R.N. 20:46 09/02/16. The patient has had no adverse reaction. RESPIRATORY: No respiratory distress. Breath sounds normal. SKIN: Skin is warm and dry. --20:46 Tessy Dow R.N. 20:45 09/02/16. BP: 102/54. HR: 81. RR: 18. O2 saturation: 99%. Temp: 98.1 F. Pain level now: 0/10. --20:46 Tessy Dow R.NJason 21:07 09/02/16. The patient has had no adverse reaction. --21:07 Tessy Dow R.N. 21:00 09/02/16. BP: 100/53. HR: 80. RR: 18. O2 saturation: 100%. Temp: 98 F. Pain level now: 0/10. --21:07 Tessy Dow R.N. DISPOSITION / DISCHARGE 21:14 09/02/16. Disposition: observation in Acute Care. Transported via stretcher. Report was given. (to DOLORES White). Patient's personal items include, bagged. --21:14 Tessy Dow R.N. 21:14 09/02/16. Condition at departure: improved and stable. The goals identified in the patient's plan of care were met. FALL RISK ASSESSMENT: Fall risk assessment completed. No fall risk identified. --21:14 Tessy Dow R.N. 21:14 09/02/16. BP: 107/53. HR: 80. RR: 18. O2 saturation: 100%. Temp: 98.2 F. Pain level now 0/10. --21:14 Tessy Dow R.N. Departure time: :Sep 02 2016. --21:14 Tessy Dow R.N. ( pt was transported by Erwin BERNAL with blood being infused by the pump.). --21:29 Toribio Prater R.N. Locked/Released at 09/02/2016 21:29 by Toribio Prater R.N.
--- NOTE | 2016-09-02 18:27 | ED ORDER SUMMARY ---
..... Patient: DRAKE RON OrderSheet [facility] VisitID: [id number] [place] [address] 65y, F Registration Date/Time: 09/02/2016 ORDER SHEET Weight: 71.6 kg (stated) Allergies: Vicodin GENERAL ORDERS: CBC w Diff Urgent (16:09/02/2016 Kenny MERCADO) (Ack 16:02 TBergley) (16:32 TBergley) UA-Culture if indicated Urgent (16:09/02/2016 Kenny MERCADO) (Ack 16:02 TBergley) (16:30 TBergley) BMP Urgent (16:09/02/2016 Kenny MERCADO) (Ack 16:05 TBergley) (16:32 TBergley) Type & Cross (blood loss anemia) (transfusion) Urgent (18:09/02/2016 Kenny MERCADO) (Ack 18:43 TBergley) (19:51 TBergley) - (Start transfusion 3 units PRBC as soon as blood is available.) (18:09/02/2016 Kenny MERCADO) (Ack 18:43 TBergley) (19:51 TBergley) MEDICATION ORDERS: IV FLUIDS: IV Saline Lock (16:09/02/2016 Kenny MERCADO) (16:36 Fabiola R.N.) ORDER SHEET NOTES: [Electronically signed by Toribio Prater R.N. (21:09/02/2016)] [Electronically signed by Herbert Carmen MD (08:23 09/04/2016)] [Electronically locked/signed by Toribio Prater R.N. (:09/02/2016)]
--- NOTE | 2016-09-02 18:27 | ED CLINICAL REPORT ---
Clinical Report - Physicians/Mid Levels [facility] [address] [place] [address] 09/02/2016 15:20 Patient: DRAKE RON Time Seen: 08:14 Sep 04 2016. Arrived- By private vehicle. Historian- patient. CPT: ER phys charges level 5 (#[id number]). HISTORY OF PRESENT ILLNESS Chief Complaint: Anemia, need transfusion. ( Patient was seen in urology clinic today and sent to the ER for transfusion. Patient has underlying ruptured kidney on the left due to trauma and has slow bleeding through the urinary tract. She has been urinating blood for 6 weeks now. She had a hematocrit at the office of 24. 7 days ago she had a hematocrit that was 34.). This started several days and is still present. At its maximum, severity described as moderate. When seen in the E.D., severity described as moderate. Modifying factors. Not worsened by anything. Not relieved by anything. The patient has had fatigue and weakness. Similar symptoms previously: None. Recent medical care: The patient was seen recently at this facility and another facility in the emergency department and office. REVIEW OF SYSTEMS No fever, sore throat or throat, sinus drainage or nasal congestion. No cough, difficulty breathing, abdominal pain, nausea or vomiting. No diarrhea, black stools or stools or bloody stools or stools. No chills, difficulty with urination or urination or abnormal bleeding. No skin rash or rash, back pain, calf pain or headache. No blackouts, double vision, epistaxis, urinary frequency or easy bruising. The patient has had moderate, sharp, stabbing left-sided chest pain (due to rib fractures.). No difficulty with ambulation. The patient has had hematuria. All systems otherwise negative, except as recorded above. PAST HISTORY See nurses notes. ( Patient states broke some ribs and had lacerated left kidney 12/ post fall Rib Fracture. Renal Injury. Thyroid Disease. Hypertension. Gastroesophageal Reflux Disease. Cyclical vomiting syndrome. ADDITIONAL SURGERIES: Adenoidectomy. Bilateral feet. Tonsillectomy. Wrist bilat. Medications: Zofran Oral. Percocet Oral. Citalopram Hydrobromide Oral. Hydrochlorothiazide Oral. Levothyroxine Sodium Oral. Ranitidine HCl Oral. Allergies: Vicodin. SOCIAL HISTORY Never smoker. No alcohol use or drug use. ADDITIONAL NOTES The nursing notes have been reviewed. PHYSICAL EXAM Vital Signs: 09/02/2016 15:28 BP: 142/64. HR: 91. RR: 18. O2 saturation: 100%. Temp: 98.5 F. Appearance: Alert. Eyes: Pale conjunctivae. ENT: Nose normal. Pharynx normal. Neck: Normal inspection. CVS: Normal heart rate and rhythm. Heart sounds normal. Pulses normal. Respiratory: No respiratory distress. Breath sounds normal. Chest nontender. Abdomen: Soft and nontender. Back: Normal inspection. Skin: Skin warm. No rash. Pallor. Extremities: Extremities exhibit normal ROM. Neuro: Oriented X 3. No motor deficit. No sensory deficit. LABS, X-RAYS, AND EKG Laboratory Tests: CBC wo Diff: (MINDY: 09/03/2016 11:50) ( [facility] 09/03/2016 11:58) Final results Test Result Flag Units (Reference) WHITE BLOOD COUNT NO REFLEX 9.4 K/uL (4.5-11.5) RED BLOOD COUNT 3.84 L M/uL (4.00-5.20) HEMOGLOBIN 11.4 L gm/dL (12.0-16.0) HEMATOCRIT 33.7 L % (36.0-46.0) MEAN CELL VOLUME 88 fL (80-100) MEAN CORPUSCULAR HGB 30 pg (26-34) MEAN CORPUSCULAR HGB CONC 34 g/dL (31-37) RED CELL DISTRIBUTION WIDTH 13.8 % (11.6-14.8) PLATELET COUNT 374 K/uL (150-400) CBC w Diff: (MINDY: 09/03/2016 05:00) ( [facility] 09/03/2016 05:25) Final results Test Result Flag Units (Reference) WHITE BLOOD COUNT 9.9 K/uL (4.5-11.5) RED BLOOD COUNT 3.61 L M/uL (4.00-5.20) HEMOGLOBIN 10.8 L gm/dL (12.0-16.0) HEMATOCRIT 31.4 L % (36.0-46.0) MEAN CELL VOLUME 87 fL (80-100) MEAN CORPUSCULAR HGB 30 pg (26-34) MEAN CORPUSCULAR HGB CONC 34 g/dL (31-37) RED CELL DISTRIBUTION WIDTH 13.8 % (11.6-14.8) PLATELET COUNT 352 K/uL (150-400) NEUTROPHIL % 64.2 % (50-75) LYMPH % 24.5 L % (25-40) MONO % 5.5 % (3-14) EOSINOPHIL % 5.0 H % (0-4) BASOPHIL % 0.8 % (0-2) UA-Culture if indicated: (MINDY: 09/02/2016 16:17) ( Msg[facility]cvd 09/02/2016 16:53) Final results Test Result Flag Units (Reference) URINE COLOR YELLOW URINE APPEARANCE CLEAR URINE GLUCOSE NEGATIVE (NEGATIVE) URINE BILIRUBIN 3+ (NEGATIVE) URINE KETONE 1+ (NEGATIVE) URINE SPECIFIC GRAVITY 1.015 (1.010-1.030) URINE PH 7.5 (5.0-8.0) URINE PROTEIN 3+ (NEGATIVE) URINE UROBILINOGEN 4.0 EU/dL (0.2-1.0) The urobilinogen reagent area may react with interferingsubstances known to react with Ingrid's reagent such asp-aminosalicylic acid and sulfonamides. Atypical colorreactions may be obtained in the presence of highconcentrations of p-aminobenzoic acid. The absence ofurobilinogen cannot be determined with this test. URINE NITRITE POSITIVE (NEGATIVE) URINE BLOOD 3+ (NEGATIVE) URINE LEUK ESTERASE POSITIVE (NEGATIVE) URINE RBC >100 rbc/hpf (0-1) URINE WBC 3-5 wbc/hpf (0-1) URINE EPITHELIAL CELLS 0-1 EPI/hpf (0-5) URINE BACTERIA MODERATE (2+ TO 3+) (NONE SEEN) URINE COMMENT CULTURE INDICATED URINE CULTURES ARE SET-UP BASED ON THE FOLLOWING CRITERIA:POSITIVE NITRITEPOSITIVE LEUKOCYTE ESTERASEGREATER THAN 10 WHITE BLOOD CELLSMODERATE (2+) OR GREATER BACTERIA CBC w Diff: (MINDY: 09/02/2016 16:30) ( MsgRcvd 09/02/2016 17:03) Final results Test Result Flag Units (Reference) WHITE BLOOD COUNT 11.2 K/uL (4.5-11.5) RED BLOOD COUNT 2.79 L M/uL (4.00-5.20) HEMOGLOBIN 8.1 L gm/dL (12.0-16.0) HEMATOCRIT 24.4 L % (36.0-46.0) MEAN CELL VOLUME 88 fL (80-100) MEAN CORPUSCULAR HGB 29 pg (26-34) MEAN CORPUSCULAR HGB CONC 33 g/dL (31-37) RED CELL DISTRIBUTION WIDTH 14.2 % (11.6-14.8) PLATELET COUNT 408 H K/uL (150-400) NEUTROPHIL % 68.3 % (50-75) LYMPH % 20.6 L % (25-40) MONO % 6.3 % (3-14) EOSINOPHIL % 4.2 H % (0-4) BASOPHIL % 0.6 % (0-2) BMP: (MINDY: 09/02/2016 16:30) ( MsgRcvd 09/02/2016 16:56) Final results Test Result Flag Units (Reference) GLUCOSE 100 mg/dL (70-110) BUN 20 H mg/dL (7-18) CREATININE 1.1 mg/dL (0.6-1.3) Estimated GFR 53.15 mL/min Estimated GFR- >60 mL/min Note: Persistent reduction over 3 months in eGFR<60 mL/min/1.73 m2 defines CKD. Patients with eGFR values>=60 mL/min/1.73 m2 may also have CKD if evidence ofpersistent proteinuria. Additional information may be foundat www.kidney.org. SODIUM 135 L mmol/L (136-145) POTASSIUM 3.4 L mmol/L (3.5-5.1) CHLORIDE 98 mmol/L (98-107) CARBON DIOXIDE 26 mmol/L (21-32) CALCIUM 8.9 mg/dL (8.5-10.1) Culture, Urine: (MINDY: 09/02/2016 16:17) ( [facility] 09/03/2016 15:03) Final results Test Result Flag Units (Reference) CULTURE, URINE DATE: 09/03/16 PRELIM REPORT: FINAL REPORT -- GRCSTREP QUANTITATIVE URINE GROWTH: GREATER THAN 100,000 CFU/mL ID AND SENS TO FOLLOW: NO FURTHER WORKUP Type & Cross: (MINDY: 09/02/2016 16:30) ( MsgRcvd 09/03/2016 03:56) IP Test Result Flag Units (Reference) PATIENT BLOOD TYPE O Positive Above is a corrected result. Previously reported on ( MsgRcvd 09/02/2016 19:19) as: PATIENT BLOOD TYPE O Positive ANTIBODY SCREEN NEGATIVE Above is a corrected result. Previously reported on ( MsgRcvd 09/02/2016 19:19) as: ANTIBODY SCREEN NEGATIVE LEUKOREDUCED PACKED CELLS [id number] OP PC TRANSFUSED 09/03/16 0102 [id number] OP PC ISSUED 09/02/16 1934 [id number] OP PC TRANSFUSED 09/02/164 . PROGRESS AND PROCEDURES Course of Care: Discussed with Dr. Allison urologist on-call for Dr. Portillo. [phone]. [facility]. Discussed the natural progression of this disease and expected outcome. Basically the patient is to be treated conservatively and transfuse as needed and hopefully this bleeding will regress and stop itself. In specific there is no need to recent CAT scan the patient unless she has symptoms of femoral neuropathy from retroperitoneal spread and femoral canal compression. Her treatment for now should just consist of a transfusion as needed and monitoring of hematocrits. Discussed case with on-call health care provider, (Hernan). Reviewed test results. Agreed upon treatment plan and decision to admit. Health care provider will see patient in ED. Patient/family counseled. Old medical records ordered. Disposition orders written. Disposition: Admitted to Acute Care. CLINICAL IMPRESSION Progressive anemia due to urinary blood loss from left sided renal trauma. Admission for blood transfusion. (Electronically signed by Herbert Carmen MD 09/04/2016 8:23)
--- NOTE | 2016-09-02 21:31 | HISTORY AND PHYSICAL ---
ADMITTED: 09/02/2016 CHIEF COMPLAINT: 1. Renal bleeding HISTORY OF PRESENT ILLNESS: A 65-year-old female presents to [facility] Emergency Department at the recommendation of her urologist for hematuria from a renal injury. The patient was injured 07/13/2016 when she fell, striking her side against a freestanding outdoor faucet with some force, enough to break the faucet. Her side then hit the concrete extension to which it was attached, resulting in rib fracture x3. She was hospitalized at that time x2 days and discharged. CT with contrast revealed kidney injury on the left, as well as the rib fractures. She was hospitalized again because of urinary retention from blood clots and had vigorous bladder irrigation. She was discharged and followed up with Urology, Dr. Portillo at [facility] in the [facility]. She saw this urologist because she had been seeing Dr. Portillo in preparation for a pelvic reconstruction surgery. Dr. Portillo saw her, catheterized her again, irrigated her bladder vigorously with multiple clots being removed and lab tests were drawn. She was called this afternoon because of lab results showing worsening anemia with the recommendation for a transfusion. Dr. Portillo spoke with Dr. Carmen at [facility] Emergency Department and plan was developed for management of her renal laceration, which involves a torn renal trudy. The plan is to transfuse and stabilize, hoping that the bleeding will regress and stop, allowing salvage of the kidney. Dr. Allison was communications department chair for Dr. Portillo and expressed that further imaging such as CT scan is not needed unless the patient has symptoms of femoral neuropathy from bleeding in the retroperitoneum or a marked change in status. The plan is therefore, to admit for transfusion and then discharge for followup with urology. The patient expresses concern about the blood clots in the urine and she has difficulty urinating at times because of the clots. This has required irrigation twice, each time performed by Urology. MEDICAL/SURGICAL HISTORY: Past medical history: Remarkable for thyroid disease, hypertension, GERD, cyclical vomiting syndrome, renal injury as noted above, and rib fractures as noted above. Surgeries: Adenoidectomy, bilateral foot surgery, tonsillectomy and bilateral wrist surgery. MEDICATIONS: The patient has a medication list, but does not recall dosages. The medications she has include: 1. Citalopram. 2. Hydrochlorothiazide. 3. Levothyroxine. 4. Ranitidine. 5. Percocet. 6. Zofran. ALLERGIES: 1. VICODIN CAUSED CONFUSION AND HALLUCINATIONS. SOCIAL HISTORY: female with 2 sons. Retired. She lives with her , who as PTSD and is disabled. FAMILY HISTORY: Noncontributory for diabetes, heart disease, or cancer. REVIEW OF SYSTEMS: The patient denies neurologic symptoms of headache or seizures. She denies upper respiratory symptoms of cough, sore throat, congestion, rhinorrhea. She denies cardiac symptoms of chest pain, palpitations, dyspnea on exertion or paroxysmal nocturnal dyspnea. She denies respiratory symptoms of cough, shortness of breath, or wheezing. She denies gastrointestinal symptoms of nausea, vomiting, diarrhea, constipation, bright red blood per rectum or melena. She admits to symptoms of urinary hesitancy and hematuria. She denies dysuria. Dermatologic: The patient denies rash, skin lesions or diaphoresis. PHYSICAL EXAMINATION: VITAL SIGNS: Blood pressure 142/64, pulse 91, respirations 18, SaO2 100%, temperature 98.5. HEENT: Clear. NECK: Supple without adenopathy or thyromegaly. CHEST: Clear to auscultation and percussion. Left chest wall is tender along the lower ribs laterally and extending to the side, but not to the front of the chest. There is no bruising visible. No crepitus is palpable or audible. HEART: Regular rate and rhythm without murmur. ABDOMEN: Positive bowel sounds. Soft, nontender, without hepatosplenomegaly or masses. BACK: Straight without CVA tenderness. EXTREMITIES: Without cyanosis, clubbing, or edema. NEUROLOGIC: Intact and symmetric, but without focal weakness. Deep tendon reflexes are 2+, symmetric. All extremities have equal strength and sensation. LAB/IMAGING: Glucose 100, creatinine 1.1, sodium 135, potassium 3.4, chloride 98, bicarb 26. WBC 11.2, hemoglobin 8.1, hematocrit 24.4, platelets 408,000. Urinalysis reveals yellow, clear-appearing urine, 3+ bilirubin, 1+ ketones, specific gravity 1.015, pH 7.5, protein 3+, urobilinogen 4.0, nitrite positive, blood 3+, urine 3+ blood positive, leukocyte esterase positive, greater than 100 RBC, 3-5 WBC, 0-1 epithelial cells. IMPRESSION: 1. Renal injury with a fractured renal trudy. 2. Anemia secondary to hematuria from renal injury. 3. Urinary tract infection. 4. Rib fracture x3. 5. History of depression. 6. History of gastroesophageal reflux disease. 7. History of hypothyroidism. 8. History of hypertension. PLAN: Admit to [facility] for observation and transfusing x3 units packed red blood cells. I will consider bladder irrigation if needed. Anticipate discharge tomorrow with follow up with Urology. We will also treat with oral antibiotics for urinary tract infection.
[2016-09-02 21:53] VITALS: BP 129/75
--- NOTE | 2016-09-02 22:44 | NUR ---
1ST UNIT PRBC WENT THROUGH AND APPEARED TO BE WELL TOLERATED.
--- NOTE | 2016-09-02 22:45 | NUR ---
PATIENT CAME FROM ED WITH COMPLAINTS OF DISTENDED BLADDER AND BLOODSTAINED URINE. SHE ALSO HAD A LOW BLOOD COUNT AND CAME UP FROMED WITH THE 1ST UNIT OF PRBC ONGOING. SHE IS TO HAVE 2 MORE UNITS WITH IV FUROSEMIDE COVER IN BETWEEN. HER BLADDER SCAN YIELDED 700+ MLS URINE AND IS FOR A STAT 3WAY FIGUEROA CATH FOR A CONNTINUOUS IRRIGATION.
[2016-09-02 22:59] VITALS: BP 124/66
[2016-09-02 23:19] VITALS: BP 115/63
[2016-09-02 23:56] VITALS: BP 122/78
[2016-09-03] VITALS (9 sets, daily range): BP systolic 91–122; BP diastolic 48–75
--- NOTE | 2016-09-03 00:50 | NUR ---
2ND UNIT PRBC FINISHED WITH NO UNTOWARD REACTIONS.
--- NOTE | 2016-09-03 01:44 | NUR ---
10:30 Pt c/o severe need to void, states she attempted to empty her bladder in the bathroom but was unsucessful. Bladder scan done revealed 750 cc of urine. Orders received for a 3 way catheter and for continuous irrigation according to policy. [address] with a large amount burgundy coloered urine flowing out and around the catheter with approximately over 1000cc. pt started on on a continuous bladder irrigation
--- NOTE | 2016-09-03 01:58 | NUR ---
PATIENT ADMITTED WITH BLOOD IN THE URINE AND A DISTENDED BLADDER. SHW WAS ALSO FOUND OUT TO BE ANEMIC AND CAME UP WITH AN ONGOING 1ST UNIT PRBC. SHE IS TO HAVE TWO MORE BAGS OF BLOOD WITH FUROSEMIDE COVER IN BETWEEN BAGS. HER BLADDER SCAN YIELDED 700+ MLS OF RETAINED URINE. SHE IS FOR A 3 WAY URINARY CATHETER AND IS FOR A STAT CONTINUOUS IRRIGATION.
--- NOTE | 2016-09-03 03:55 | NUR ---
3RD UNIT PRBC FINISHED AND HAS BEEB WELL TOLERATED. VITALS ARE STABLE
--- NOTE | 2016-09-03 10:27 | NUR ---
PT OOB IN CHAIR FOR BREAKFAST. DENIES PAIN AT THIS TIME. SHE STATED, "BEFORE THE CATHETER WAS PLACED I HAD LOTS OF PAIN LEFT RIB CAGE THAT RADIATED TO THE LEFT BACK AREA. SINCE THE FIGUEROA WAS PLACED I HAVEN'T HAD MUCH PAIN." FIGUEROA IN PLACE AND PATENT. AT THIS TIME, CONTINUAL BLADDER IRRIGATION RUNNING AND URINE OUTPUT IS CRANBERRY IN COLOR WITH INTERMITTENT SMALL CLOTS. URINARY OUTPUT IS 900cc AT THIS TIME. DR YATES, OF [facility], WANTS PT TO BE DISCHARGED TO [facility] FOR FURTHER CARE. DR MILLER NOTIFIED AND HE CALLED TO SPEAK WITH DR YATES ABOUT THE MATTER OF TRANSFER. [facility].
--- NOTE | 2016-09-03 14:01 | Discharge Summary ---
Discharge Summary Report Admit Date 09/02/16 Discharge Date 09/03/16 Admission Diagnosis hematuria Discharge Diagnosis hematuria Brief History A 65-year-old female presents to [facility] Emergency Department at the recommendation of her urologist for hematuria from a renal injury. The patient was injured 07/13/2016 when she fell, striking her side against a freestanding outdoor faucet with some force, enough to break the faucet. Her side then hit the concrete extension to which it was attached, resulting in rib fracture x3. She was hospitalized at that time x2 days and discharged. CT with contrast revealed kidney injury on the left, as well as the rib fractures. She was hospitalized again because of urinary retention from blood clots and had vigorous bladder irrigation. She was discharged and followed up with Urology, Dr. Portillo at [facility] in the [facility]. She saw this urologist because she had been seeing Dr. Portillo in preparation for a pelvic reconstruction surgery. Dr. Portillo saw her, catheterized her again, irrigated her bladder vigorously with multiple clots being removed and lab tests were drawn. She was called this afternoon because of lab results showing worsening anemia with the recommendation for a transfusion. Dr. Portillo spoke with Dr. Carmen at [facility] Emergency Department and plan was developed for management of her renal laceration, which involves a torn renal trudy. The plan is to transfuse and stabilize, hoping that the bleeding will regress and stop, allowing salvage of the kidney. Dr. Allison was application internship for Dr. Portillo and expressed that further imaging such as CT scan is not needed unless the patient has symptoms of femoral neuropathy from bleeding in the retroperitoneum or a marked change in status. The plan is therefore, to admit for transfusion and then discharge for followup with urology. The patient expresses concern about the blood clots in the urine and she has difficulty urinating at times because of the clots. This has required irrigation twice, each time performed by Urology. Hospital Course Patient was admitted seen to have hematuria with slight anemia. Patient was transfused 3 units and had an optimal response however the patient was continuing to have hematuria and a abel catheter was placed. Howeve the patient was having decreased urine out put due to the presence of clots. Patient was then placed on continual bladder irrigation. Patient spoke to her urologist who recommended that the patient be [facility]. Arrangements were made and the patient is in the process of being transferred. General Appearance Alert, Oriented X3, Cooperative HEENT PERRLA, EOMI, Mucous membran moist/pink Lungs Clear to auscultation, Normal air movement Cardiovascular Normal S1, Normal S2, Gallops Abdomen Soft, No tenderness Pelvic Normal external genitalia, continual hematuria present Lab/Imaging Laboratory Tests 09/02 09/02 09/03 09/03 1617 1630 0500 1150 Chemistry Plasma Sodium (136 - 145 mmol/L) 135 Plasma Potassium (3.5 - 5.1 mmol/L) 3.4 Plasma Chloride (98 - 107 mmol/L) 98 CO2 (Enzymatic) (21 - 32 mmol/L) 26 BUN (7 - 18 mg/dL) 20 Creatinine (0.6 - 1.3 mg/dL) 1.1 Est GFR ( Amer) (mL/min) >60 Est GFR (Non-Af Amer) (mL/min) 53.15 Glucose (70 - 110 mg/dL) 100 Plasma Calcium (8.5 - 10.1 mg/dL) 8.9 Hematology WBC (4.5 - 11.5 K/uL) 11.2 9.9 9.4 RBC (4.00 - 5.20 M/uL) 2.79 3.61 3.84 Hgb (12.0 - 16.0 gm/dL) 8.1 10.8 11.4 Hct (36.0 - 46.0 %) 24.4 31.4 33.7 MCV (80 - 100 fL) 88 87 88 MCH (26 - 34 pg) 29 30 30 RDW (11.6 - 14.8 %) 14.2 13.8 13.8 Neut % (Auto) (50 - 75 %) 68.3 64.2 Lymph % (Auto) (25 - 40 %) 20.6 24.5 Gem % (Auto) (3 - 14 %) 6.3 5.5 Eos % (Auto) (0 - 4 %) 4.2 5.0 Baso % (Auto) (0 - 2 %) 0.6 0.8 Plt Count, EDTA (150 - 400 K/uL) 408 352 374 PUBS MCHC (31 - 37 g/dL) 33 34 34 Urines Urine Color YELLOW Urine Appearance CLEAR Urine pH (5.0 - 8.0) 7.5 Ur Specific [place] (1.010 - 1.030) 1.015 Urine Protein (NEGATIVE) 3+ Urine Ketones (NEGATIVE) 1+ Urine Blood (NEGATIVE) 3+ Urine Nitrite (NEGATIVE) POSITIVE Urine Bilirubin (NEGATIVE) 3+ Urine Urobilinogen (0.2 - 1.0 EU/dL) 4.0 Ur Leukocyte Esterase (NEGATIVE) POSITIVE Urine RBC (0 - 1 rbc/hpf) >100 Urine WBC (0 - 1 wbc/hpf) 3-5 Ur Epithelial Cells (0 - 5 EPI/hpf) 0-1 Urine Bacteria (NONE SEEN) MODERATE (2+ TO 3+) Urine Glucose (NEGATIVE) NEGATIVE Urine Comment CULTURE INDICATED Microbiology Date/Time Procedure - Status Source Growth 09/02 1617 Urine Culture - RECD URINE CC Discharge Instructions/Meds assesment and plan explained to accepting connie
--- NOTE | 2016-09-03 14:02 | NUR ---
NOTIFED [facility] ED AND SPOKE WITH VICE PRESIDENT FOR PHILANTHROPY, CHRISTOPHER GOODRICH, AND REPORTED OFF TO HER. IV TO KAILA GOMEZ. BLADDER IRRIGATION STOPPED. REPORTED TO EMS CREW AND GAVE THEM THE HX PACKET FOR [facility].
--- NOTE | 2016-09-04 08:23 | ED MED RECONCILIATION SUMMARY ---
Patient: DRAKE RON Medication Reconciliation Report [facility] VisitID: [id number] [address] [place] [place] [address] 65y, F Registration Date/Time: 09/02/2016 Weight: 71.6 kg Height/Length: 66 in. BMI: 25.5 ALLERGIES: Vicodin The patient's Home Medications are listed below: THE FOLLOWING MEDICATIONS NEED TO BE RECONCILED: Citalopram Hydrobromide Oral Hydrochlorothiazide Oral Levothyroxine Sodium Oral Percocet Oral Ranitidine HCl Oral Zofran Oral The source(s) of the original Home Medication information: patient The following Medications were given to the patient in the Emergency Department: None. The following Medications were prescribed to the patient: None.
--- NOTE | 2016-09-04 08:23 | ED DISCHARGE INSTRUCTIONS ---
Patient: DRAKE RON General Instructions [facility] VisitID: [id number] [address] [place] [address] 65y, F Registration Date/Time: 09/02/2016 Progressive anemia due to urinary blood loss from left sided renal trauma. Admission for blood transfusion. (Electronically signed by Herbert Carmen MD 09/04/2016 8:23)
--- NOTE | 2016-09-04 08:23 | ED DISCHARGE INSTRUCTIONS ---
Patient: DRAKE RON General Instructions [facility] VisitID: [id number] [address] [place] [address] 65y, F Registration Date/Time: 09/02/2016 Progressive anemia due to urinary blood loss from left sided renal trauma. Admission for blood transfusion. (Electronically signed by Herbert Carmen MD 09/04/2016 8:23)
--- NOTE | 2016-09-04 08:23 | ED MAR SUMMARY ---
..... Medication Administration Record [facility] [address] [place], [place] [id number] Patient: DARKE RON Visit ID: [id number] 65y, F Weight: 71.6 kg Height/Length: 66 in BMI: 25.5 ALLERGIES: Vicodin
--- NOTE | 2016-09-04 08:23 | ED MED RECONCILIATION SUMMARY ---
Patient: DRAKE RON Medication Reconciliation Report [facility] VisitID: [id number] [address] [place] [address] 65y, F Registration Date/Time: 09/02/2016 Weight: 71.6 kg Height/Length: 66 in. BMI: 25.5 ALLERGIES: Vicodin The patient's Home Medications are listed below: THE FOLLOWING MEDICATIONS NEED TO BE RECONCILED: Citalopram Hydrobromide Oral Hydrochlorothiazide Oral Levothyroxine Sodium Oral Percocet Oral Ranitidine HCl Oral Zofran Oral The source(s) of the original Home Medication information: patient The following Medications were given to the patient in the Emergency Department: None. The following Medications were prescribed to the patient: None.
--- NOTE | 2016-09-04 08:23 | ED MAR SUMMARY ---
..... Medication Administration Record [facility] [address] [place], [place] [id number] Patient: DRAKE RON Visit ID: [id number] 65y, F Weight: 71.6 kg Height/Length: 66 in BMI: 25.5 ALLERGIES: Vicodin
== END 2016-09-03 14:00 | disposition short-term general hospital (02) ==
LOC: ED SRH 15:21 → TRANS SRH 18:43 → ACUTE2 SRH 21:38
PROVIDERS: ADMIT Emergency Medicine
PROC: 30233N1 Transfusion of Nonautologous Red Blood Cells into Peripheral Vein, Percutaneous Approach (ICD-10-PCS; principal; 2016-09-02)
DX: D50.0 Iron deficiency anemia secondary to blood loss (chronic) (principal); R31.0 Gross hematuria; S37.05 Moderate laceration of kidney; W01.198D Fall on same level from slipping, tripping and stumbling with subsequent striking against other object, subsequent encounter; N39.0 Urinary tract infection, site not specified; I10 Essential (primary) hypertension; K21.9 Gastro-esophageal reflux disease without esophagitis; E03.9 Hypothyroidism, unspecified
CPT/HCPCS: 29230; 29249; 29259; 29264; 80170; 83475; 90001; 90004; 90047; 90074; 90155; 90469; 90627; 91004; 91295; 91544; 95059

== ENCOUNTER 2016-10-12 19:00 | Emergency (ER) | payer OTHER | END 2016-10-12 22:15 | disposition home or self-care (01) | LOC: ED SRH 19:00 | DX: R11.10 Vomiting, unspecified (principal); I10 Essential (primary) hypertension | CPT/HCPCS: 90100; 90137; 92235; 92530 ==